=== PATIENT | female | born 1990 | race Caucasian/White ===

== ENCOUNTER → 2017-04-12 | Outpatient (CLI) | payer MEDICAID ==
[~2017-04-12] MED LIST: ALBUTEROL-200 PUFFS/ IH; ALEVE220 MG PO; BIRTH CONTROL PO; DEPO PROVER150 MG/ML IM; FERROUS SULFAT325 M2 PO; IRON TABLETS325 MG PO; LORTAB 5/500 501 TAB PO; LORTAB PO; NOMEDS XX; OXYCODONE HCL30 MG PO; PERCOCET 10 MG1 EACH PO; PERCOCET 325 MG1 TA4 PO; PHENERGAN 25MG.25 M1 PO; PRENATAL PLUS1 TA1 PO; PRENATAL1 TA2 PO; ZOFRAN ODT8 MG PO; ZOFRAN4 MG PO
[2017-04-12 11:34] LABS: LYMPH # 2.6 K/mm3 (0.7-4.5); LYMPH % 37.3 % (10-50.0)
[2017-04-12 14:19] LABS: BUN 10 mg/dL (7-18)
[2017-04-12 14:31] LABS: GFR (ESTIMATED) 101 ML/MIN (59-)
== END ==
LOC: LAB 11:11
PROVIDERS: Internal Medicine
DX: C81.90 Hodgkin lymphoma, unspecified, unspecified site (principal)

== ENCOUNTER → 2017-06-05 | Outpatient (CLI) | payer MEDICAID ==
--- NOTE | 2017-06-07 11:25 | RADIOLOGY REPORT PS360 ---
US BREAST-LT COMPLETE W/AXILLA COMPARISON: 01/01/2017 INDICATION: Palpable nodule ORDERING PHYSICIAN: MONICA UMANZOR MD PATIENT AGE: 26 years TECHNIQUE: Standard images performed FINDINGS: No discrete cystic or solid nodule evident by ultrasound. Small axillary lymph nodes are present IMPRESSION: Negative left breast ultrasound. BI-RADS CATEGORY: 1_Negative RECOMMENDED FOLLOWUP: As clinically warranted. No sonographic abnormalities evident. If there is indeed a palpable nodule then it should be managed on a clinical basis. Negative ultrasound does not exclude the possibility of malignancy (A letter has been sent to the patient regarding results of the study.)
== END ==
LOC: RAD 12:32
DX: R92.8 Other abnormal and inconclusive findings on diagnostic imaging of breast (principal)